=== PATIENT | male | born 1955 | race Two or more races ===

== ENCOUNTER 2017-06-16 15:32 | Inpatient (IN) | payer OTHER ==
[2017-06-16 16:14] VITALS: BMI 28.4
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
[2017-06-16] MEDS ORDERED: NICOTINE POLACRILEX 2 MG GUM BC PRN (17:21)
[2017-06-16] MEDS ORDERED: MAG HYDROX/AL HYDROX/SIMETH 30 ML UNIT-DOSE CUP PO PRN (17:21)
[2017-06-16] MEDS ORDERED: LOPERAMIDE HCL 2 MG CAPSULE PO PRN (17:21)
[2017-06-16] MEDS ORDERED: ACETAMINOPHEN 325 MG TABLET (FP) PO PRN (17:21)
[2017-06-16] MEDS ORDERED: P-EPHED 60MG/TRIPROLIDI 2.5MG TABLET PO PRN (17:21)
[2017-06-16] MEDS ORDERED: guaiFENesin/D-METHORPHAN HB 10 ML UNIT-DOSE CUPS PO PRN (17:21)
[2017-06-16] MEDS ORDERED: hydrOXYzine PAMOATE 50 MG CAPSULE (FP) PO PRN (17:21)
[2017-06-16] MEDS ORDERED: diphenhydrAMINE HCL 50 MG CAPSULE PO PRN (17:21)
[2017-06-16] MEDS ORDERED: MAGNESIUM CITRATE 300 ML BOTTLE PO PRN (17:21)
[2017-06-16] MEDS ORDERED: MAGNESIUM HYDROX 2400MG/30ML ORAL SUSPENSION 30 ML CUP PO PRN (17:21)
[2017-06-16] MEDS ORDERED: MENTHOL/PHENOL 1 EACH UD MM PRN (17:21)
[2017-06-16] MEDS ORDERED: ALBUTEROL SO4 6.7 GM HFA INHALER IH PRN (17:24)
[2017-06-16 20:17] LABS: URINE APPEARANCE SLCLOUDY; URINE BILIRUBIN NEGATIVE (NEGATIVE); URINE BLOOD NEGATIVE (NEGATIVE); URINE COLOR AMBER; URINE GLUCOSE (UA) NEGATIVE (NEGATIVE); URINE KETONE NEGATIVE (NEGATIVE); URINE LEUK ESTERASE NEGATIVE (NEGATIVE); URINE NITRITE NEGATIVE (NEGATIVE); URINE PROTEIN NEGATIVE (NEGATIVE); URINE UROBILINOGEN NEGATIVE mg/dL (0.2-1.0)
[2017-06-16] MEDS: THIAMINE HCL 100 MG TABLET (FP) PO SCH (22:17)
[2017-06-16] MEDS ORDERED: TUBERCULIN PPD 5 TU/0.1ML VIAL ID ONE (22:19)
[2017-06-17 09:39] LABS: MCH 29.5 pg (25.7-33.7); MCHC 33.4 g/dl (32.0-35.9); MEAN CELL VOLUME 88.2 fl (80-96); MEAN PLT VOLUME 10.1 fl (7.5-11.1); PLATELET COUNT 187 K/MM3 (134-434); RDW 13.7 % (11.9-15.9); WHITE BLOOD COUNT 6.6 K/mm3 (4.0-10.0)
[2017-06-17 09:49] LABS: ALBUMIN 3.8 g/dl (3.4-5.0); ANION GAP 8 (8-16); CALCIUM 9.4 mg/dL (8.5-10.1); CO2 31 mmol/L (21-32); GLUCOSE,RANDOM 101 mg/dL (74-106); SGOT/AST 46 U/L (15-37); SGPT/ALT 74 U/L (12-78)
[2017-06-17 09:50] LABS: ALK PHOS 115 U/L (45-117); BILIRUBIN,TOTAL 0.7 mg/dL (0.2-1.0); TOT PROT 7.2 g/dl (6.4-8.2)
[2017-06-17] MEDS: PRENATAL VITAMINS W/ FOLIC ACID TABLET (FP) PO SCH (10:22)
--- NOTE | 2017-06-17 10:29 | HP ---
Psychiatrist Admission - Data Date of interview: 06/17/17 Admission source: [facility] Identifying data: This is one of the multiple admissions to [address] [place] [address] for this 62 yo H father of 4 grown children.patient resides with his aunt,supported by [facility]. Medical History: Significant for Chronic arthritis. Psychiatric History: Patient has long and extensive psychiatric history.He was dx with Learning disabiity in childhood,then with Bipolar disorder later.Patient sees psychiatrist at [facility],stopped taking his medications a few months ago when he relapsed.Patient is willing to restart his medications:Elavil 100 mg po and and Neurontin 300 mg po tid. Physical/Sexual Abuse/Trauma History: denies Vital Signs: Vital Signs - 24 hr 06/16/17 06/16/17 06/17/17 16:08 22:47 03:30 Temperature 96.7 F L Pulse Rate 90 87 Respiratory 18 16 20 Rate Blood Pressure 148/83 106/75 06/17/17 06:57 Temperature 98.3 F Pulse Rate 76 Respiratory 18 Rate Blood Pressure 106/69 Allergies/Adverse Reactions: Allergies Allergy/AdvReac Type Severity Reaction Status Date / Time fish derived [Fish derived] Allergy Mild Swelling Verified 06/16/17 16:35 shellfish derived Allergy Mild Swelling Verified 06/16/17 16:35 No Known Drug Allergies Allergy Verified 06/16/17 16:35 Date of last physical exam: 06/16/17 Concur with the findings of this exam: Yes - Substance Abuse/Tx History Hx Alcohol Use: No Hx Substance Use: Yes (cocaine since 23 yo,heroin since 29 sniffing 3-4 bags daily) Substance Use Type: Cocaine, Heroin Hx Substance Use Treatment: Yes (completed this program in May 2014) - Admission Criteria Previous failed treatment: Yes Poor recovery environment: Yes Comorbidities: Yes Lacks judgement: Yes Mental Status Exam - Mental Status Exam Alert and Oriented to: Time, Place, Person Cognitive Function: Grossly Intact Patient Appearance: Unkempt Mood: Sad, Withdrawn Affect: Mood Congruent, Constricted Patient Behavior: Cooperative Speech Pattern: Clear Voice Loudness: Mildly Soft/Quiet Thought Process: Goal Oriented Thought Disorder: Being Controlled Hallucinations: Denies Suicidal Ideation: Denies Homicidal Ideation: Denies Insight/Judgement: Fair Sleep: Fair Appetite: Fair Muscle strength/Tone: Normal Gait/Station: Normal Psychiatric Findings - Problem List ([place] 1, 2,3) (1) Heroin dependence Current Visit: Yes Status: Chronic (2) Nicotine dependence Current Visit: Yes Status: Chronic (3) Bipolar affective disorder, mixed, severe, with psychotic behavior Current Visit: Yes Status: Chronic (4) Cocaine dependence Current Visit: Yes Status: Chronic (5) Arthritis Current Visit: Yes Status: Chronic (6) Head injury Current Visit: Yes Status: Chronic Qualifiers: Encounter type: sequela Qualified Code(s): S09.90XS - Unspecified injury of head, sequela (7) Learning disability Current Visit: Yes Status: Chronic - Initial Treatment Plan Initial Treatment Plan: Restart Neurontin 300 mg po tid,Elavil 100 mg po hs.
[2017-06-17 12:41] LABS: HIV 1 & 2 AB NEGATIVE; HIV 1 AGp24 NEGATIVE
[2017-06-17] MEDS: GABAPENTIN 300 MG CAPSULE (FP) PO SCH ×2 (14:29→21:50)
[2017-06-17] MEDS: THIAMINE HCL 100 MG TABLET (FP) PO SCH (21:50)
[2017-06-17] MEDS: AMITRIPTYLINE HCL 100 MG TABLET PO SCH (21:50)
[2017-06-18] MEDS: GABAPENTIN 300 MG CAPSULE (FP) PO SCH ×3 (06:54→21:29)
[2017-06-18] MEDS: PRENATAL VITAMINS W/ FOLIC ACID TABLET (FP) PO SCH (10:12)
[2017-06-18] MEDS ORDERED: PT OWN MED DRAWER 7, Y5N ONE (20:44)
[2017-06-18] MEDS: AMITRIPTYLINE HCL 100 MG TABLET PO SCH (21:29)
[2017-06-18] MEDS: THIAMINE HCL 100 MG TABLET (FP) PO SCH (21:29)
[2017-06-19] MEDS: GABAPENTIN 300 MG CAPSULE (FP) PO SCH ×3 (07:10→21:39)
[2017-06-19] MEDS: PRENATAL VITAMINS W/ FOLIC ACID TABLET (FP) PO SCH (10:07)
[2017-06-19] MEDS: THIAMINE HCL 100 MG TABLET (FP) PO SCH (21:39)
[2017-06-19] MEDS: AMITRIPTYLINE HCL 100 MG TABLET PO SCH (21:39)
--- NOTE | 2017-06-19 22:40 | EKG ---
Test Reason : Blood Pressure : / mmHG Vent. Rate : 078 BPM Atrial Rate : 078 BPM P-R Int : 170 ms QRS Dur : 074 ms QT Int : 364 ms P-R-T Axes : 060 060 053 degrees QTc Int : 414 ms NORMAL SINUS RHYTHM NORMAL ECG WHEN COMPARED WITH ECG OF 13-FEB-2014 11:18, NO SIGNIFICANT CHANGE WAS FOUND Confirmed by DAFNE COWART MD ([id number]) on 06/19/2017 10:40:04 PM Referred By: Confirmed By:DAFNE COWART MD
[2017-06-20] MEDS: GABAPENTIN 300 MG CAPSULE (FP) PO SCH ×3 (06:48→21:55)
[2017-06-20] MEDS: PRENATAL VITAMINS W/ FOLIC ACID TABLET (FP) PO SCH (10:19)
[2017-06-20] MEDS: IBUPROFEN 400 MG TABLET (FP) PO PRN (10:20)
[2017-06-20] MEDS: THIAMINE HCL 100 MG TABLET (FP) PO SCH (21:55)
[2017-06-20] MEDS: AMITRIPTYLINE HCL 100 MG TABLET PO SCH (21:55)
[2017-06-21] MEDS: GABAPENTIN 300 MG CAPSULE (FP) PO SCH ×3 (06:19→21:15)
[2017-06-21] MEDS: PRENATAL VITAMINS W/ FOLIC ACID TABLET (FP) PO SCH (10:21)
[2017-06-21] MEDS: THIAMINE HCL 100 MG TABLET (FP) PO SCH (21:14)
[2017-06-21] MEDS: AMITRIPTYLINE HCL 100 MG TABLET PO SCH (21:15)
[2017-06-22] MEDS: GABAPENTIN 300 MG CAPSULE (FP) PO SCH ×3 (06:48→21:36)
[2017-06-22] MEDS: IBUPROFEN 400 MG TABLET (FP) PO PRN (06:49)
[2017-06-22] MEDS: PRENATAL VITAMINS W/ FOLIC ACID TABLET (FP) PO SCH (10:34)
--- NOTE | 2017-06-22 16:32 | PN ---
Psychiatric Progress Note Vital Signs: Vital Signs Period Temp Pulse Resp BP Sys/Garcia Pulse Ox Last 24 Hr 98.4 F 95 18-20 112/71 Date of Session: 06/22/17 Chief Complaint:: Discharge visit HPI: Patient addressed Cocaine and Opioid dependence comorbid with Learning disability and Bipolar disorder. ROS: Significant for Chronic arthritis,H/O Head trauma. Current Medications: Active Medications Generic Name Dose Route Start Last Admin Trade Name Freq PRN Reason Stop Dose Admin Acetaminophen 650 mg 06/16/17 17:21 Tylenol - PO Q4H PRN PAIN Al Hydroxide/Mg Hydroxide 30 ml 06/16/17 17:21 Mylanta Oral Suspension - PO Q6H PRN DYSPEPSIA Albuterol Sulfate 2 puff 06/16/17 17:24 Ventolin Hfa Inhaler - IH Q4H PRN ASTHMA Amitriptyline HCl 100 mg 06/17/17 22:00 06/21/17 21:15 Elavil - PO 100 mg HS ANGELIQUE Administration Diphenhydramine HCl 50 mg 06/16/17 17:21 06/16/17 20:55 Benadryl - PO 50 mg HSMR1 PRN Administration INSOMNIA Eucalyptus/Menthol/Phenol/Sorbitol 1 each 06/16/17 17:21 Cepastat Lozenge - MM Q4H PRN SORE THROAT Gabapentin 300 mg 06/17/17 14:00 06/22/17 15:00 Neurontin - PO 300 mg TID ANGELIQUE Administration Guaifenesin 10 ml 06/16/17 17:21 Robitussin Dm - PO Q6H PRN COUGH Hydroxyzine Pamoate 50 mg 06/16/17 17:21 Vistaril - PO Q4H PRN AGITATION Ibuprofen 400 mg 06/16/17 17:21 06/22/17 06:49 Motrin - PO 400 mg Q6H PRN Administration SEVERE PAIN Loperamide HCl 4 mg 06/16/17 17:21 Imodium - PO Q6H PRN DIARRHEA Magnesium Citrate 300 ml 06/16/17 17:21 Citroma - PO Q48H PRN CONSTIPATION Magnesium Hydroxide 30 ml 06/16/17 17:21 Milk Of Magnesia - PO DAILY PRN CONSTIPATION Nicotine Polacrilex 2 mg 06/16/17 17:21 Nicorette Gum - BC Q2H PRN NICOTINE REPLACEMENT RX Multivit/Folic Acid/Iron 1 tab 06/17/17 10:00 06/22/17 10:34 Vitamins (Sjr) - PO Not Given DAILY ANGELIQUE Pseudoephedrine/Triprolidine 1 combo 06/16/17 17:21 Actifed - PO TID PRN NASAL CONGESTION Thiamine HCl 100 mg 06/16/17 22:00 06/21/17 21:14 Vitamin B1 - PO 100 mg HS ANGELIQUE Administration Current Side Effect: No Lab tests ordered: No Lab tests reviewed: Yes Provider note:: patient will complete this program tomorrow 06/23/17 (early discharge due to coverage problem) .He has met his treatment goals and will [facility] to [facility].Patient reports finding Gabapentin 300 mg po tid,Elavil 100 mg po hs helps to cope with anxiety,mood instability,sleeping difficulties. Patient identifies areas of difficulties ,behaviors which contributes to relapse.coping skills,support system he can utilze to maintain recovery . Supportive therapy privided. patient is stable for discharge tomorrow. Total face to face time:: 30 Mental Status Exam - Mental Status Exam Cognitive Function: Grossly Intact Patient Appearance: Unkempt Mood: Sad Affect: Mood Congruent Patient Behavior: Cooperative Speech Pattern: Clear Voice Loudness: Normal Thought Process: Goal Oriented Thought Disorder: Not Present Hallucinations: Denies Suicidal Ideation: Denies Homicidal Ideation: Denies Insight/Judgement: Fair Sleep: Fair Appetite: Good Muscle strength/Tone: Normal Gait/Station: Normal Psychiatric Treatment Plan - Problem List (1) Heroin dependence Current Visit: Yes (2) Nicotine dependence Current Visit: Yes (3) Bipolar affective disorder, mixed, severe, with psychotic behavior Current Visit: Yes (4) Cocaine dependence Current Visit: Yes (5) Arthritis Current Visit: Yes (6) Head injury Current Visit: Yes Qualifiers: Encounter type: sequela Qualified Code(s): S09.90XS - Unspecified injury of head, sequela (7) Learning disability Current Visit: Yes
[2017-06-22] MEDS: THIAMINE HCL 100 MG TABLET (FP) PO SCH (21:36)
[2017-06-22] MEDS: AMITRIPTYLINE HCL 100 MG TABLET PO SCH (21:36)
[2017-06-23] MEDS: GABAPENTIN 300 MG CAPSULE (FP) PO SCH ×3 (06:24→21:13)
[2017-06-23] MEDS: PRENATAL VITAMINS W/ FOLIC ACID TABLET (FP) PO SCH (10:37)
[2017-06-23] MEDS: THIAMINE HCL 100 MG TABLET (FP) PO SCH (21:12)
[2017-06-23] MEDS: AMITRIPTYLINE HCL 100 MG TABLET PO SCH (21:13)
[2017-06-24] MEDS: GABAPENTIN 300 MG CAPSULE (FP) PO SCH ×2 (06:30→13:27)
[2017-06-24 07:12] VITALS: BP 140/91; PULSE 103; TEMP 98.6
[2017-06-24] MEDS: PRENATAL VITAMINS W/ FOLIC ACID TABLET (FP) PO SCH (10:44)
--- NOTE | 2017-06-24 14:45 | PN ---
Psychiatric Progress Note Vital Signs: Vital Signs Period Temp Pulse Resp BP Sys/Garcia Pulse Ox Last 24 Hr 98.6 F 103 18-20 140/91 Date of Session: 06/24/17 Chief Complaint:: Discharge visit HPI: Patient addressed Opioid ,Cocaine dependence comorbid withLearning disability,PTSD, Bipolar disorder. ROS: See medical history. Current Medications: Active Medications Generic Name Dose Route Start Last Admin Trade Name Freq PRN Reason Stop Dose Admin Acetaminophen 650 mg 06/16/17 17:21 Tylenol - PO Q4H PRN PAIN Al Hydroxide/Mg Hydroxide 30 ml 06/16/17 17:21 Mylanta Oral Suspension - PO Q6H PRN DYSPEPSIA Albuterol Sulfate 2 puff 06/16/17 17:24 Ventolin Hfa Inhaler - IH Q4H PRN ASTHMA Amitriptyline HCl 100 mg 06/17/17 22:00 06/23/17 21:13 Elavil - PO 100 mg HS ANGELIQUE Administration Diphenhydramine HCl 50 mg 06/16/17 17:21 06/16/17 20:55 Benadryl - PO 50 mg HSMR1 PRN Administration INSOMNIA Eucalyptus/Menthol/Phenol/Sorbitol 1 each 06/16/17 17:21 Cepastat Lozenge - MM Q4H PRN SORE THROAT Gabapentin 300 mg 06/17/17 14:00 06/24/17 13:27 Neurontin - PO 300 mg TID ANGELIQUE Administration Guaifenesin 10 ml 06/16/17 17:21 Robitussin Dm - PO Q6H PRN COUGH Hydroxyzine Pamoate 50 mg 06/16/17 17:21 Vistaril - PO Q4H PRN AGITATION Ibuprofen 400 mg 06/16/17 17:21 06/22/17 06:49 Motrin - PO 400 mg Q6H PRN Administration SEVERE PAIN Loperamide HCl 4 mg 06/16/17 17:21 Imodium - PO Q6H PRN DIARRHEA Magnesium Citrate 300 ml 06/16/17 17:21 Citroma - PO Q48H PRN CONSTIPATION Magnesium Hydroxide 30 ml 06/16/17 17:21 Milk Of Magnesia - PO DAILY PRN CONSTIPATION Nicotine Polacrilex 2 mg 06/16/17 17:21 Nicorette Gum - BC Q2H PRN NICOTINE REPLACEMENT RX Multivit/Folic Acid/Iron 1 tab 06/17/17 10:00 06/24/17 10:44 Vitamins (Sjr) - PO 1 tab DAILY ANGELIQUE Administration Pseudoephedrine/Triprolidine 1 combo 06/16/17 17:21 Actifed - PO TID PRN NASAL CONGESTION Thiamine HCl 100 mg 06/16/17 22:00 06/23/17 21:12 Vitamin B1 - PO 100 mg HS ANGELIQUE Administration Current Side Effect: No Lab tests ordered: No Lab tests reviewed: Yes Provider note:: Patient completed this program today.His discharge on 06/23/17 has been postponed to 06/24/17.Patient will continue to address his issues on outpatient basis.He will continue current medications as per planScripts provided for Neurontin 300 mg po tid,Elavil 100 mg po hs. patient is stable for discharge today. Total face to face time:: 25 Mental Status Exam - Mental Status Exam Alert and Oriented to: Time, Place, Person Cognitive Function: Grossly Intact Patient Appearance: Well Groomed Mood: Hopeful, Euthymic Affect: Mood Congruent Patient Behavior: Cooperative Speech Pattern: Clear Voice Loudness: Normal Thought Process: Goal Oriented Thought Disorder: Not Present Hallucinations: Denies Suicidal Ideation: Denies Homicidal Ideation: Denies Insight/Judgement: Fair Sleep: Fair Appetite: Fair Muscle strength/Tone: Normal Gait/Station: Normal Psychiatric Treatment Plan - Problem List (1) Heroin dependence Current Visit: Yes (2) Nicotine dependence Current Visit: Yes (3) Bipolar affective disorder, mixed, severe, with psychotic behavior Current Visit: Yes (4) Cocaine dependence Current Visit: Yes (5) Arthritis Current Visit: Yes (6) Head injury Current Visit: Yes Qualifiers: Encounter type: sequela Qualified Code(s): S09.90XS - Unspecified injury of head, sequela (7) Learning disability Current Visit: Yes
== END 2017-06-24 14:54 | disposition home or self-care (01) | DRG 895 ==
LOC: YASAS 15:32 → Y3W 16:40
PROVIDERS: ADMIT Psychiatry & Neurology Psychiatry; ATTEND Psychiatry & Neurology Psychiatry
PROC: HZ42ZZZ Group Counseling for Substance Abuse Treatment, Cognitive-Behavioral (ICD-10-PCS; principal; 2017-06-24)
DX: F11.20 Opioid dependence, uncomplicated (principal); F33.3 Major depressive disorder, recurrent, severe with psychotic symptoms; F17.210 Nicotine dependence, cigarettes, uncomplicated; F41.8 Other specified anxiety disorders; M12.9 Arthropathy, unspecified; J45.909 Unspecified asthma, uncomplicated; Z91.5 Personal history of self-harm
CPT/HCPCS: 36415; 80053; 81003; 85027; 86593; 87389; 93005; 93010

== ENCOUNTER 2021-03-25 12:15 | Inpatient (IN) | payer OTHER ==
[2021-03-25] MEDS ORDERED: MAGNESIUM HYDROX 2400MG/30ML ORAL SUSPENSION 30 ML CUP PO PRN (18:35)
[2021-03-25] MEDS ORDERED: guaiFENesin 200 MG/10 ML 10 ML UNIT-DOSE CUPS PO PRN (18:35)
[2021-03-25] MEDS ORDERED: MAGNESIUM CITRATE 300 ML BOTTLE PO PRN (18:35)
[2021-03-25] MEDS ORDERED: LOPERAMIDE HCL 2 MG CAPSULE PO PRN (18:35)
[2021-03-25] MEDS ORDERED: IBUPROFEN 400 MG TABLET (FP) PO PRN (18:35)
[2021-03-25] MEDS ORDERED: MAG HYDROX/AL HYDROX/SIMETH 30 ML UNIT-DOSE CUP PO PRN (18:35)
[2021-03-25] MEDS ORDERED: NICOTINE POLACRILEX 2 MG GUM BC PRN (18:35)
[2021-03-25] MEDS ORDERED: ACETAMINOPHEN 325 MG TABLET (FP) PO PRN (18:35)
[2021-03-25] MEDS ORDERED: P-EPHED 60MG/TRIPROLIDI 2.5MG TABLET PO PRN (18:35)
[2021-03-25] MEDS: MELATONIN 5 MG TABLETS PO SCH (21:21)
[2021-03-25] MEDS: hydrOXYzine PAMOATE 25 MG CAPSULE (FP) PO PRN (21:21)
[2021-03-25] MEDS: THIAMINE HCL 100 MG TABLET (FP) PO SCH (21:21)
[2021-03-25] MEDS ORDERED: hydrOXYzine PAMOATE 25 MG CAPSULE (FP) PO SCH (22:00)
[2021-03-26] MEDS ORDERED: NICOTINE 7 MG/24 HOURS TOPICAL PATCH TD SCH (10:00)
[2021-03-26] MEDS: PRENATAL VITAMINS W/ FOLIC ACID TABLET (FP) PO SCH (10:11)
[2021-03-26] MEDS: hydrOXYzine PAMOATE 25 MG CAPSULE (FP) PO PRN (10:11)
[2021-03-26] MEDS ORDERED: ALBUTEROL SO4 HFA INHALER IH PRN (13:37)
[2021-03-26] MEDS ORDERED: ASPIRIN 81 MG CHEWABLE TABLETS ONE (13:39)
[2021-03-26] MEDS ORDERED: ALBUTEROL SO4 HFA INHALER IH ONE (13:39)
[2021-03-26] MEDS ORDERED: ASPIRIN 81 MG CHEWABLE TABLETS PO ONE (13:45)
[2021-03-26 16:30] LABS: HEMATOCRIT 36.1 % (35.4-49); HEMOGLOBIN 12.2 GM/dL (11.7-16.9); MCH 31.6 pg (25.7-33.7); MCHC 33.8 g/dl (32.0-35.9); MEAN CELL VOLUME 93.3 fl (80-96); MEAN PLT VOLUME 11.6 fl (7.5-11.1); PLATELET COUNT 180 K/MM3 (134-434); RBC 3.87 M/mm3 (4.00-5.60); RDW 14.4 % (11.9-15.9); WHITE BLOOD COUNT 6.1 K/mm3 (4.0-10.0)
[2021-03-26 16:36] LABS: ALBUMIN 3.8 g/dl (3.4-5.0); BLOOD UREA NITROGEN 26.7 mg/dL (7-18)
[2021-03-26 16:41] LABS: BILIRUBIN,TOTAL 0.2 mg/dL (0.2-1); TOT PROT 7.2 g/dl (6.4-8.2)
[2021-03-26] MEDS: MELATONIN 5 MG TABLETS PO SCH (23:30)
[2021-03-26] MEDS: THIAMINE HCL 100 MG TABLET (FP) PO SCH (23:30)
[2021-03-27 06:32] VITALS: TEMP 98
[2021-03-27] MEDS: PRENATAL VITAMINS W/ FOLIC ACID TABLET (FP) PO SCH (10:00)
[2021-03-27] MEDS: hydrOXYzine PAMOATE 25 MG CAPSULE (FP) PO PRN ×2 (10:00→18:44)
[2021-03-27 11:29] LABS: PH,URINE 6.5 (5.0-8.0); URINE APPEARANCE CLEAR; URINE BILIRUBIN NEGATIVE (NEGATIVE); URINE COLOR YELLOW; URINE GLUCOSE (UA) NEGATIVE (NEGATIVE); URINE KETONE NEGATIVE (NEGATIVE); URINE LEUK ESTERASE NEGATIVE (NEGATIVE); URINE NITRITE NEGATIVE (NEGATIVE); URINE PROTEIN NEGATIVE (NEGATIVE); URINE UROBILINOGEN 0.2 mg/dL (0.2-1.0)
[2021-03-27] MEDS: MELATONIN 5 MG TABLETS PO SCH (22:05)
[2021-03-27] MEDS: THIAMINE HCL 100 MG TABLET (FP) PO SCH (22:05)
[2021-03-28] MEDS: hydrOXYzine PAMOATE 25 MG CAPSULE (FP) PO PRN (10:06)
[2021-03-28] MEDS: PRENATAL VITAMINS W/ FOLIC ACID TABLET (FP) PO SCH (10:06)
[2021-03-28 20:39] VITALS: BP 138/83; PULSE 102
[2021-03-29 14:06] LABS: SARS-CoV-2 NAA Not Detected (Not Detected)
== END 2021-03-28 21:20 | disposition left against medical advice (07) | DRG 894 ==
LOC: YASAS 12:15 → Y3W 19:02
PROVIDERS: ADMIT Allergy & Immunology; ATTEND Allergy & Immunology
PROC: HZ2ZZZZ Detoxification Services for Substance Abuse Treatment (ICD-10-PCS; principal; 2021-03-25)
DX: F11.20 Opioid dependence, uncomplicated (principal); F14.20 Cocaine dependence, uncomplicated; F33.9 Major depressive disorder, recurrent, unspecified; F10.20 Alcohol dependence, uncomplicated; F17.210 Nicotine dependence, cigarettes, uncomplicated; F31.9 Bipolar disorder, unspecified; F41.8 Other specified anxiety disorders; F81.9 Developmental disorder of scholastic skills, unspecified; M19.90 Unspecified osteoarthritis, unspecified site; D64.9 Anemia, unspecified; J45.909 Unspecified asthma, uncomplicated; M54.5 Low back pain; G89.29 Other chronic pain; Z86.2 Personal history of diseases of the blood and blood-forming organs and certain disorders involving the immune mechanism; Z91.5 Personal history of self-harm
CPT/HCPCS: 36415; 80053; 81003; 85027; 86780; 93005; 93010; C9803; U0003; U0005

== ENCOUNTER 2021-03-26 14:39 | Emergency (ER) | payer OTHER ==
[2021-03-26 15:03] VITALS: TEMP 98.4; BMI 25.8
[2021-03-26 17:45] LABS: BASO % 0.7 % (0-2.0); EOS % 4.3 % (0-4.5); HEMOGLOBIN 11.5 GM/dL (11.7-16.9); LYMPH % 26.6 % (8-40); MCH 31.2 pg (25.7-33.7); MCHC 33.8 g/dl (32.0-35.9); MEAN CELL VOLUME 92.2 fl (80-96); MEAN PLT VOLUME 10.1 fl (7.5-11.1); MONO % 8.8 % (3.8-10.2); NEUT % 59.6 % (42.8-82.8); PLATELET COUNT 162 K/MM3 (134-434); RBC 3.69 M/mm3 (4.00-5.60); RDW 14.3 % (11.9-15.9); WHITE BLOOD COUNT 4.9 K/mm3 (4.0-10.0)
[2021-03-26 17:53] LABS: INR 0.93 (0.83-1.09); PROTHROMBIN TIME (PATIENT) 11.5 SEC (9.7-13.0)
[2021-03-26 17:55] LABS: ACTIVATED PTT 31.4 SECONDS (25.2-36.5)
[2021-03-26 18:11] LABS: CHLORIDE 102 mmol/L (98-107); SODIUM 137 mmol/L (136-145)
[2021-03-26 18:13] LABS: CALCIUM 8.9 mg/dL (8.5-10.1)
[2021-03-26 18:14] LABS: ALBUMIN 3.6 g/dl (3.4-5.0); ANION GAP 2 MMOL/L (8-16); CO2 33 mmol/L (21-32); GLUCOSE,RANDOM 99 mg/dL (74-106)
[2021-03-26 18:17] LABS: CREATININE 0.9 mg/dL (0.55-1.3); SGOT/AST 24 U/L (15-37); SGPT/ALT 23 U/L (13-61)
[2021-03-26 18:19] LABS: BILIRUBIN,TOTAL 0.2 mg/dL (0.2-1)
[2021-03-26 18:20] LABS: ALK PHOS 76 U/L (45-117)
[2021-03-26] MEDS ORDERED: LACTATED RINGERS SOLUTION 1000 ML INFUS.BAG IV ONE (18:25)
[2021-03-26 20:38] LABS: CHLORIDE 102 mmol/L (98-107); SODIUM 137 mmol/L (136-145)
[2021-03-26 20:39] LABS: ANION GAP 2 MMOL/L (8-16); CO2 33 mmol/L (21-32)
[2021-03-26 20:40] LABS: BLOOD UREA NITROGEN 31.2 mg/dL (7-18); GLUCOSE,RANDOM 114 mg/dL (74-106)
[2021-03-26 22:29] VITALS: BP 121/70; PULSE 88
== END 2021-03-26 22:31 ==
LOC: JER 14:39
PROC: 3E0F7GC Introduction of Other Therapeutic Substance into Respiratory Tract, Via Natural or Artificial Opening (ICD-10-PCS; principal; 2021-03-26)
DX: R07.9 Chest pain, unspecified (principal)
CPT/HCPCS: 36415; 71046-TC-FY; 80048; 80053; 82550; 82553; 84484; 85025; 85610; 85730; 93005; 93010; 99284-25